=== PATIENT | female | born 1960 | race Caucasian/White ===

== ENCOUNTER → 2024-04-30 12:51 | Outpatient (BNVA) | payer OTHER, SELFPAY | PROVIDERS: PCP Family Medicine; Visit Provider Orthopaedic Surgery | DX: M54.50 Low back pain, unspecified (principal); M25.559 Pain in unspecified hip | CPT/HCPCS: 72110; 73523 ==

== ENCOUNTER 2024-05-23 14:37 | Outpatient (CLI) | payer MEDICARE, SELFPAY ==
--- NOTE | 2024-05-23 15:15 | MR_ITS ---
WS: [id number] MRI LUMBAR SPINE NONCONTRAST TECHNIQUE: Sagittal T1, T2 and STIR imaging. Axial T1 and T2 imaging. CLINICAL INFORMATION: back pain COMPARISON: None. FINDINGS: Mild lumbar curve. No acute compression. Slight anterolisthesis L4 on L5. Endplate degenerative changes L4-5. Tiny central protrusion T12-L1. L1-L2: Mild annular bulging. Mild facet arthropathy. Small RIGHT foraminal protrusion with mild RIGHT foraminal narrowing. L2-L3: LEFT paracentral protrusion. Significant impingement of traversing LEFT L3 nerve root in the subarticular recess. Mild central canal stenosis. Small bilateral foraminal protrusions. Moderate facet arthropathy. L3-L4: Mild central canal stenosis with a LEFT subarticular protrusion. Impingement of traversing LEFT L4 nerve root. LEFT foraminal protrusion impinges the exiting LEFT L3 nerve root. L4-L5: Severe central canal stenosis. Impingement of traversing L5 nerve roots. Advanced facet arthropathy with ligamentum flavum hypertrophy. Severe impingement on the traversing L5 nerve roots. RIGHT foraminal protrusion impinges the exiting L4 nerve root with moderate to severe RIGHT foraminal narro wing. L5-S1: Mild disc bulge with endplate ridging. Moderate to advanced facet arthropathy. Spinal canal and foramen are patent. Visualized pelvic bony structures: Normal. Paravertebral soft tissues: Normal. Adrenal glands are normal. No hydronephrosis in either kidney. MR/MR lumbar spine wo con* [id number] IMPRESSION: 1. Mild lumbar curve. No acute compression. 2. Grade 1 anterolisthesis L4 on L5. Severe central canal stenosis at this lev el with impingement on the traversing L5 nerve roots bilaterally. Advanced face t arthropathy and ligamentum flavum hypertrophy. 3. Moderate to severe RIGHT foraminal narrowing L4-5 impinges the exiting L4 n erve root with a RIGHT foraminal protrusion. 4. LEFT foraminal protrusion L3-4 impinges the exiting LEFT L3 nerve root 5. Mild central canal stenosis L3-4 with moderate impingement on the traversin g LEFT L4 nerve root in the subarticular recess. 6. LEFT paracentral protrusion L2-3 with mild central canal stenosis. Impingem ent on the traversing LEFT L3 nerve root in the subarticular recess. Small bila teral foraminal protrusions at this level. 7. Advanced facet arthropathy L4-L5 and L5-S1.
== END 2024-05-23 14:38 | disposition home or self-care (01) ==
LOC: RAD 14:45
PROVIDERS: PCP Family Medicine; Visit Provider Orthopaedic Surgery
DX: M48.061 Spinal stenosis, lumbar region without neurogenic claudication (principal); M43.8X6 Other specified deforming dorsopathies, lumbar region; M43.16 Spondylolisthesis, lumbar region; R93.7 Abnormal findings on diagnostic imaging of other parts of musculoskeletal system; M47.896 Other spondylosis, lumbar region; M24.28 Disorder of ligament, vertebrae; M51.26 Other intervertebral disc displacement, lumbar region; M47.897 Other spondylosis, lumbosacral region; M51.369 Other intervertebral disc degeneration, lumbar region without mention of lumbar back pain or lower extremity pain; M51.379 Other intervertebral disc degeneration, lumbosacral region without mention of lumbar back pain or lower extremity pain
CPT/HCPCS: 72148

== ENCOUNTER → 2024-05-28 14:27 | Outpatient (BNVA) | payer MEDICARE, SELFPAY | PROVIDERS: PCP Family Medicine; Visit Provider Orthopaedic Surgery | DX: M43.16 Spondylolisthesis, lumbar region (principal) | CPT/HCPCS: 36415; 80053; 81001; 85025; 99214 ==

== ENCOUNTER 2024-06-12 16:07 | Observation (INO) | payer MEDICARE, SELFPAY ==
[2024-06-12] VITALS (15 sets, daily range): BP systolic 127–188; BP diastolic 64–109; PULSE 61–102; RESP 16–18; TEMP 35.9–36.7; O2SAT 90–98; BMI 35.7
[2024-06-12 11:03] LABS: Bilirubin Urine Negative (Negative); Blood Urine 1+ (Negative); Glucose Urine UA 3+ (Normal); Ketones Urine Negative (Negative); Leukocyte Esterase Urine Trace (Negative); Nitrate Urine Negative (Negative); Protein Urine 1+ (Negative); Urine Appearance Cloudy (CLEAR); Urine Color Yellow (Yellow); pH Urine 5.5 (5-7)
[2024-06-12 11:08] LABS: Add Urine Microscopic? YES; Bacteria Urine 1+ /hpf; Hyaline Casts Urine 2.05 /lpf; Squamous Epithelial Cell Urine 21-50 /hpf (0-5); WBC Urine >100 /hpf (0-5)
--- NOTE | 2024-06-12 11:09 | W.PM.OPSUD ---
Surgery/Procedure H&P Update DATE OF PROCEDURE: June 12, 2024 DATE H&P PERFORMED: 05/28/24 H&P UPDATE INFORMATION: I have reviewed H&P completed within last 30 days, I have examined patient prior to procedure and No changes to prior documentation PREOP DIAGNOSIS: L4-5 spondylolisthesis PLANNED PROCEDURE: Operation Date: 06/12/24 11:50 Proposed Procedures p Posterior Lumbar Interbody Fusion PLIF(Not Applicable) - Pete Dang DO
[2024-06-12 11:21] LABS: Specific Gravity, Urine 1.042 (1.005-1.030)
[2024-06-12 11:22] LABS: UA Slide Review UA Slide Review Perf
[2024-06-12 11:23] LABS: Add Urine Culture? Yes
[2024-06-12 12:06] LABS: Bilirubin Urine Negative (Negative); Blood Urine 1+ (Negative); Glucose Urine UA 3+ (Normal); Ketones Urine Negative (Negative); Leukocyte Esterase Urine Negative (Negative); Nitrate Urine Negative (Negative); Protein Urine 2+ (Negative); Urine Appearance Clear (CLEAR); Urine Color Yellow (Yellow); pH Urine 5.5 (5-7)
[2024-06-12 12:11] LABS: Add Urine Microscopic? YES; Bacteria Urine None Seen /hpf; Hyaline Casts Urine 1.21 /lpf; Squamous Epithelial Cell Urine 0-5 /hpf (0-5); WBC Urine 0-5 /hpf (0-5)
[2024-06-12 12:33] LABS: Specific Gravity, Urine 1.043 (1.005-1.030)
[2024-06-12 12:34] LABS: UA Slide Review UA Slide Review Perf
[2024-06-12 12:37] LABS: Add Urine Culture? No
--- NOTE | 2024-06-12 12:44 | ANES.PREANE2 ---
Pre-Anesthetic Assessment Height/Weight: Height 5 ft 5 in Weight 215 lb Temp Pulse Resp BP Pulse Ox O2 Del Method 98 F 64 16 148/66 92 Room Air 06/12/24 10:40 06/12/24 10:40 06/12/24 10:40 06/12/24 10:40 06/12/24 10:40 06/12/24 10:43 Preop Diagnosis: L4-5 spondylolisthesis Operation Date: 06/12/24 11:50 Proposed Procedures p Posterior Lumbar Interbody Fusion PLIF(Not Applicable) - Pete Dang, DO Was Beta Tanesha taken within 24 hours: Yes Was Clonidine taken within 24 hours: N/A Last intake: Intake Last Liquid Date 06/11/24 Last Liquid Time 20:30 Last Solid Date 06/11/24 Last Solid Time 16:00 Social Tobacco and No alcohol Exam alert, oriented x 3, clear to auscultation bilaterally and regular rate & rhythm Mild murmur heard over the left axillary border. Patient states she has known mitral regurgitation. Follows with cardiology Airway Submandibular: within normal limits Cervical ROM: within normal limits Mallampati: Class III Dentition: full Anesthetic Plan ASA status: 3 Anesthesia: General Other: History of PONV, patient states scopolamine patch really works well for her NPO since yesterday evening History of hypertension on diltiazem and metoprolol. Preop BP 148/66 GERD on omeprazole KRISTIE, wears CPAP nightly Current smoker Initial concern for UTI, straight cath performed which resulted in fairly clean urine Type and screen performed Plan for GETA Medications/Allergies Home Medications ?Medication ?Instructions ?Recorded ?Confirmed ?Last Taken ?Type albuterol 90 mcg-budesonide 80 2 inh inhalation BID PRN Allergic 04/30/24 06/12/24 1 Week Ago History mcg/actuation HFA aerosol inhaler Symptoms ~06/05/24 bisacodyl 5 mg tablet,delayed 5 mg PO DAILY 04/30/24 06/12/24 06/10/24 History release furosemide 40 mg tablet (Lasix) 40 mg PO DAILY 04/30/24 06/12/24 06/11/24 History lamotrigine 200 mg tablet 200 mg PO BID 04/30/24 06/12/24 06/12/24 06:00 History (Lamictal) metoprolol tartrate 100 mg tablet 100 mg PO BID 04/30/24 06/12/24 06/12/24 06:00 History omeprazole 20 mg capsule,delayed 20 mg PO BID 04/30/24 06/12/24 06/12/24 06:00 History release potassium citrate 50 mg PO DAILY 04/30/24 06/12/24 1 Month Ago History ~05/15/24 diazepam 5 mg tablet (Valium) 5 mg PO BID PRN anxiety #2 tabs 05/20/24 06/11/24 06/11/24 Rx diltiazem HCl 120 mg tablet 120 mg PO BID 06/11/24 06/12/24 06/12/24 06:00 History duloxetine 30 mg capsule,delayed 30 mg PO DAILY 06/11/24 06/12/24 06/11/24 History release fluconazole 50 mg tablet 75 mg PO DIRECTED 06/11/24 06/12/24 3 Months Ago History ~03/14/24 Allergies Allergy/AdvReac Type Severity Reaction Status Date / Time morphine Allergy Intermediate ALGY-Hives Verified 06/12/24 10:42 semaglutide (From Ozempic) Allergy Intermediate hives Verified 06/12/24 10:42 codeine Allergy ALGY-Anaphy Verified 06/12/24 10:42 laxis topiramate (From Topamax) Allergy Unconscious Verified 06/12/24 10:42 PFSH Anesthesia Social History Smoking and tobacco/nicotine status: never used tobacco/nicotine Data Anesthesia Urine 06/12/24 06/12/24 Range/Units 10:30 11:38 Urine Color Yellow Yellow (Yellow) Urine Appearance Cloudy A Clear (CLEAR) Urine pH 5.5 5.5 (5-7) Ur Specific [place] 1.042 H 1.043 H (1.005-1.030) Urine Protein 1+ A 2+ A (Negative) Urine Glucose (UA) 3+ H 3+ H (Normal) Urine Ketones Negative Negative (Negative) Urine Nitrate Negative Negative (Negative) Urine Bilirubin Negative Negative (Negative) Ur Leukocyte Esterase Trace A Negative (Negative) Urine RBC 3-5 6-10 (0-2) /hpf Urine WBC >100 H 0-5 (0-5) /hpf Cardiac Studies: No Data to Display
[2024-06-12] MEDS: sodium chloride 0.9% 1,000 ML 30 ML IV (12:45)
[2024-06-12] MEDS: ceFAZolin 2,000 mg SDV 2000 MG IVP ×2 (13:11→20:29)
[2024-06-12] MEDS: lidocaine-epi 1% 20 mL INJ 10 ML INJECTION (13:58)
[2024-06-12] MEDS: heparin, porcine 1,000 unit/mL INJ 10 mL 10000 UNIT IRRIGATION (13:58)
[2024-06-12] MEDS: VANCOMYCIN ADD-Vantage 1,000 MG VIAL 1000 MG XX (13:59)
--- NOTE | 2024-06-12 16:10 | XR_ITS ---
WS: [id number] Exam: XR lumbar spine 2-3V* [id number] Date/Time of Exam: 06/12/2024 4:10 PM Reason For Exam: or pic, fusion Intraoperative AP and lateral images of the lumbar spine are submitted. There is posterior fusion of the spine with disc spacer at L4-5. No other postoperative changes are identified on this limited study.
--- NOTE | 2024-06-12 16:39 | P.OP_ITS ---
Operative Report Date of procedure: June 12, 2024 Pre-op diagnosis: Lumbar stenosis with neurogenic claudication L4-5 spondylolisthesis Post-op diagnosis: same Procedure done: 1. L4/5 Interbody fusion with posterolateral fusion 2. Instrumentation L4-L5 3. Interbody Cage at L4/5 4. L4-5 laminectomy with facetectomies 5. use of autograft from same incision 6. allograft 7. Bone marrow aspirate from right iliac crest 8. Use of computer navigation stereotactic for spine Surgeon: Pete Dang DO Estimated blood loss (mL): 150 Procedure: 1. L4/5 Interbody fusion with posterolateral fusion 2. Instrumentation L4-L5 3. Interbody Cage at L4/5 4. L4-5 laminectomy with facetectomies 5. use of autograft from same incision 6. allograft 7. Bone marrow aspirate from right iliac crest 8. Use of computer navigation stereotactic for spine Patient is brought to the operative suite. After undergoing anesthesia, the patient had neuro monitoring attached. Patient was then placed in the prone position on the Niko table. All areas of impingement were well-padded. Patient was then prepped and draped in the normal sterile fashion. Skin incision was then made over the L4 to L5 levels. Subperiosteal dissection was made out to the transverse processes of L4 and L5. Next attention was brought to the [employer] bone marrow aspirate kit was used to aspirate bone marrow aspirate. This was done by using the sharp probe to open up the bone. Aspiration was performed and then the blunt probe was then used to dissect down to through the bone tunnel. An aspirating well drawn back a millimeter approximately 20 cc of bone marrow aspirate was used. Admixed with the allograft and autograft bone that will be used. Next attention was brought to placing 2 pins into the right iliac crest will later be removed. The fiducial was attached to this. And the C-arm was brought in and spun around the patient. The information from the C-arm was then loaded the computer and later used for placing the pedicle screws under computer navigation. The technique for placing the pedicle screws was to use a drill followed by the gearshift probe linked to computer navigation. Followed by the ball probe to feel the superior inferior medial lateral john of the pedicles. Then placement of the screws with computer navigation. Was done at each pedicle. Screws were placed at L4 bilaterally and L5. Next attention was brought to performing the laminectomy of L4. This was done using the high-speed bur Kerrisons and curettes. Once the lamina was removed and then attention was brought to performing a partial facetectomy on the contralateral side. This was done again using the high-speed bur curettes and Kerrisons. The ligamentum flavum was taken down bilaterally from L4 to L5. Attention was then brought to the facet on the ipsilateral side. The facet was taken down. The L5 nerve was decompressed as it passed around the L5 pedicle. The laminectomy was done for purposes of decompressing the nerve as well as placement of the cage. The L4 nerve was identified as it traversed through the L4/5 foramen. The facets were taken down bilaterally in order to facilitate opening up with the disc space. the thecal sac was identified and retracted. The L4/5 disc space was identified. Using a knife the disc base was opened. And then sequential keegan were placed. The first shaver was a 6 and the last shaver was a 10. Using a pituitary and down going curette the endplates were scraped and disc material was removed from the space. Once adequate decompression of the disc base was felt to be had. Osteoamp sponge was packed into the anterior aspect of the disc base. Then a size 11 cage from [employer] was placed after packing osteoamp into the cage. While placing the cage the thecal sac and L5 nerve was protected. C arm was used to ensure that the cages placed in the appropriate position. Attention was then brought to attaching the rods to the screws placed in the L4 bilaterally and L5 bilaterally. Caps were torqued into position. Locking the construct in place. Wound was copiously irrigated and then attention was brought to decorticating the facets and transverse processes laterally. Bone that was taken down from the lamina was used along with osteoamp fibers and sponges were packed into the lateral gutters along the facet joints. This was done bilaterally. Wound was then closed in a layered fashion starting with the thoracolumbar fascia. 0-vicryl was used the sub cutaneous tissue was closed with 2-0 vicryl and skin with 4-0 monocryl. Steri-Strips were then applied. Sterile Silverlon dressing was placed. patient was then placed in the supine position. The endotracheal tube was removed and patient was transferred to the PACU in stable condition.
[2024-06-12] MEDS: fentaNYL 50 mcg/mL INJ 2mL IVP (16:40)
[2024-06-12] MEDS: HYDROmorphone 1 mg/mL INJ 1ml (16:55)
--- NOTE | 2024-06-12 17:15 | ANE.PACU2 ---
Inpatient post-anesthesia follow up: Airway intact: Yes Vital signs: Temperature 97.9 F Pulse Rate 81 Respiratory Rate 18 Blood Pressure 146/76 Pulse Oximetry 91 Oxygen Delivery Me thod Room Air Oxygen Flow Rate 7 Fraction of Inspir ed Oxygen Hydration adequate: Yes Nausea and vomiting: No Pain level: 2 Mental status: Baseline
[2024-06-12] MEDS: dilTIAZem ER (12HR) 60 mg Capsule 120 MG PO (17:50)
[2024-06-12] MEDS: docusate sodium 100 mg Capsule PO (17:50)
[2024-06-12] MEDS: pantoprazole DR 40 mg Tablet PO (17:50)
[2024-06-12] MEDS: lamoTRIgine 100 mg Tablet 200 MG PO (17:50)
[2024-06-12] MEDS: metoprolol tartrate 50 mg Tablet 100 MG PO (17:50)
[2024-06-12] MEDS: lactated ringers 1,000 ML 90 ML IV (17:50)
[2024-06-12] MEDS: HYDROmorphone 0.5 MG/0.5 ML INJ IVP (17:54)
[2024-06-12] MEDS: HYDROcodone-acetaminophen 5-325 mg Tablet PO (20:32)
[2024-06-12] MEDS: ketorolac 30 mg/mL INJ IVP (20:32)
[2024-06-13] VITALS: BP 126/73; PULSE 82; RESP 17; TEMP 36.4; O2SAT 93
[2024-06-13 04:00] VITALS: BP 143/71; PULSE 87; RESP 18; TEMP 36.3; O2SAT 94
[2024-06-13] MEDS: lactated ringers 1,000 ML 90 ML IV (04:19)
[2024-06-13] MEDS: HYDROcodone-acetaminophen 5-325 mg Tablet PO ×2 (04:43→10:11)
[2024-06-13] MEDS: ceFAZolin 2,000 mg SDV 2000 MG IVP (04:43)
--- NOTE | 2024-06-13 06:32 | P.DS_ITS ---
Discharge Providers Date of Admission: 06/12/24 16:07 Date of Discharge: June 13, 2024 Attending Provider at Admission: Pete Dang DO Attending Provider at Discharge: Pete Dang DO Primary Care Provider: Asia Carl MD Reason for Visit Reason for Visit: [id number] Physical Exam Narrative: Patient doing well 5-5 strength no complaints of pain. Urinary Catheter Management: M[employer]: Cath Placed During This Visit: yes Reason for Continuing Indwelling Catheter: Perioperative Use in Selected Surgeries Urinary Catheter Date of Insertion: 06/12/24 Urinary Catheter Time of Insertion: 11:38 Discharge Data Studies Completed and Pending Pending at discharge Category Date Time Status C-arm Fluoroscopy [id number] Routine Exams 06/12/24 10:21 Taken XR lumbar spine 2-3V* [id number] Routine Exams 06/12/24 16:10 Taken Urine Culture Routine Lab 06/12/24 10:30 Received Laboratory Results Urine Color Yellow (Yellow) 06/12/24 11:38 Urine Appearance Clear (CLEAR) 06/12/24 11:38 Urine pH 5.5 (5-7) 06/12/24 11:38 Ur Specific [place] 1.043 (1.005-1.030) H 06/12/24 11:38 Urine Protein 2+ (Negative) A 06/12/24 11:38 Urine Glucose (UA) 3+ (Normal) H 06/12/24 11:38 Urine Ketones Negative (Negative) 06/12/24 11:38 Urine Blood 1+ (Negative) A 06/12/24 11:38 Urine Nitrate Negative (Negative) 06/12/24 11:38 Urine Bilirubin Negative (Negative) 06/12/24 11:38 Urine Urobilinogen 1.0 mg/dL (Negative) 06/12/24 11:38 Ur Leukocyte Esterase Negative (Negative) 06/12/24 11:38 Urine RBC 6-10 /hpf (0-2) 06/12/24 11:38 Urine WBC 0-5 /hpf (0-5) 06/12/24 11:38 Ur Squamous Epith Cells 0-5 /hpf (0-5) 06/12/24 11:38 Amorphous Sediment Not Reportable 06/12/24 11:38 Urine Bacteria None seen /hpf (NONE) 06/12/24 11:38 Hyaline Casts 1.21 /lpf 06/12/24 11:38 Blood Type A Positive 06/12/24 12:50 Rho(D) Type Rh positive 06/12/24 12:50 Antibody Screen Negative 06/12/24 12:50 Vitals Last Vital Signs Temp 97.4 F L 06/13/24 04:00 Pulse 87 06/13/24 04:00 Resp 18 06/13/24 04:00 BP 143/71 06/13/24 04:00 Pulse Ox 94 06/13/24 04:00 O2 Del Method CPAP 06/13/24 04:00 O2 Flow Rate 7 06/12/24 18:39 Discharge Plan Discharge Patient Disposition: Home Condition: Stable Prescriptions: New hydrocodone-acetaminophen 5-325 mg tablet 1 - 2 tab PO .Q4-6H Qty: 40 0RF Continued metoprolol tartrate 100 mg tablet 100 mg PO BID lamotrigine [Lamictal] 200 mg tablet 200 mg PO BID furosemide [Lasix] 40 mg tablet 40 mg PO DAILY potassium citrate 50 mg PO DAILY omeprazole 20 mg capsule,delayed release(DR/EC) 20 mg PO BID albuterol-budesonide 90-80 mcg/actuation HFA aerosol inhaler 2 inh inhalation BID PRN (Reason: Allergic Symptoms) bisacodyl 5 mg tablet,delayed release (DR/EC) 5 mg PO DAILY diltiazem HCl 120 mg tablet 120 mg PO BID fluconazole 50 mg Tablet 75 mg PO DIRECTED duloxetine 30 mg capsule,delayed release(DR/EC) 30 mg PO DAILY Discontinued diazepam [Valium] 5 mg tablet 5 mg PO BID PRN (Reason: anxiety) Qty: 2 0RF Rx Instructions: Take 1st tab 1 1/2 hour prior to procedure. take 2nd tab just prior to procedure. Discharge Orders: Discharge Order (Routine); Ordered 06/13/24 Ordered By: Pete Dang Discharge Diet: Advance as tolerated Discharge Activity: Limit activity as instructed Patient Instructions: Acute Wound Care (DC), Opioid Safety, Post Anesthesia Care Activity Restrictions/Additional Instructions: Okay to restart Valium when you get home Thank you for [facility] for your care! The following is a list of instructions, from your provider, to follow upon your discharge to ensure you have the optimal recovery from your recent injury orsurgery. Follow-up care is a tang part of your treatment and safety. Be sure to make and go to all appointments, and call your doctor if you are having problems. If you do not already have a follow-up appointment made, call Dr. Dang office in the next 1-3 days to make follow up appointment for 1 weeks at [phone]. It is also a good idea to know your test results and keep a list of the medicines you take. Medications will be prescribed for you at your provider's discretion. These medications are to be used as instructed; if they are taken more often that prescribed they will not be refilled early and in most cases will not be refilled at all. > When a refill is needed,you should contact sid anderson 2-3 business days before your prescription runs out. Medications will NOT be refilled by teacher of family and consumer science providers after hours! > Many pain medications contain Tylenol (Acetaminophen). Do not consume more than 4,000 mg of Tylenol per day in total with any combination ofmedications. > Pain medications can cause constipation. Please use an over the counter stool softener as directed, while taking pain medications. Consulty our local pharmacist with questions or recommendations on stool softeners. If constipation persists, contact our office or your primary care provider. > While under our care,you are not to receive pain medications or other controlled substances from any other provider unless our office is notified and approves. Any attempts to do so will result in refusal to prescribe any further pain medications and possible dismissal from our practice. Keep dressing on until we see you in the clinic we will change it in the clinic. ? Walking is essential for the healing process after surgery. We would like you to slowly advance your walking. This should be done on relatively flat clear ground (inside or out) or can be done on a treadmill. Remember this goal does not have to happen all at once, slowly increase your distance and duration. This can be broken into more more than one walk per day as tolerated. Patients who walk as directed after surgery rarely require Physical Therapy. In the unlikely event this issue arises your provider will direct hospital staff to make the appropriate arrangements. ? No lifting over 5 pounds {a gallon of milk) or bending/twisting until further notice. Each of these activities places an unnecessary amount of stress onto the body and can impede the delicate healing process. > Instead of bending at the waist, keep your back straight and bend at the knees. > Instead of twisting your torso, keep your back straight and turn your entire body with your feet. ? You may sleep in any position which makes you comfortable. Many patients find comfort sleeping in a reclining chair. It is not abnormal to have difficulty sleeping for the first several weeks following your surgery. We recommend trying Benadry! or Tylenol PM as directed to help with your sleeping difficulties. Both medications are over the counter and available withoutprescription. ? NO SMOKING!!! Smoking dramatically increases the probability of developing postoperative wound infections. ? Common complaints after lumbar and/or thoracic spine surgery include, but are not limited to: numbness and/or tingling in the legs, pain around the incision and surrounding tissues, muscle spasms, or stiffness of the middle to low back. Contact our office if these symptoms persist or if an acute change occurs. ? No driving for the first 3-5days, and not while taking narcotics [] until seen at your follow-up appointment and cleared. There are no restrictions for riding on short trips, however if you take a longer trip, arrangements should be made to make regular stops to get out of the vehicle and stretch . ? Swelling is an unfortunate event that will take place with any surgery and is the primary source of your postoperative discomfort. While walking and regular approved activities helps control inflammation, there are additional steps you can take to minimizeswelling. > Place ice over the surgical site and surrounding tissue for twenty minutes, followed by applying a low/medium heat (heating pad) for an additional twenty minutes every 1-2 hours as needed for painrelief. > You may use of over the counter anti-inflammatory medications (Ibuprofen, Motrin, Aleve, Advil, etc) as directed on the package label. These types of medicines wm significantly reduce the amount of discomfort you experience after surgery from swelling. It should be noted that if you have and allergy to any of these medications, or a history of ulcers or kidney disease you should consult you primary care provider prior to starting these medications. Discharge Attestations Time Spent in Discharge Care*: less than 30 min Quality Metrics Clinical Quality Measures [ No reported AMI, CVA or VTE this stay] Coding Level of Care Code Acute Code for Chg Heriberto
[2024-06-13] MEDS: pantoprazole DR 40 mg Tablet PO (07:30)
[2024-06-13] MEDS: docusate sodium 100 mg Capsule PO (07:30)
[2024-06-13] MEDS: bisacodyl 5 mg Tablet PO (07:30)
[2024-06-13] MEDS: metoprolol tartrate 50 mg Tablet 100 MG PO (07:30)
[2024-06-13] MEDS: dilTIAZem ER (12HR) 60 mg Capsule 120 MG PO (07:30)
[2024-06-13] MEDS: FUROsemide 40 mg Tablet PO (07:31)
[2024-06-13] MEDS: lamoTRIgine 100 mg Tablet 200 MG PO (07:31)
[2024-06-13] MEDS: duloxetine 30 mg Capsule PO (07:31)
[2024-06-13 07:58] VITALS: BP 146/76; PULSE 89; TEMP 36.6; O2SAT 91
[2024-06-13 08:25] VITALS: PULSE 81; RESP 18; O2SAT 91
[2024-06-13] MEDS: budesonide 0.5 mg/2 mL Neb INHALATION (08:25)
[2024-06-13] MEDS: albuterol 2.5 mg/3 mL Neb INHALATION (08:25)
--- NOTE | 2024-06-13 09:28 | PC.NURSE ---
This nurse as well as [employer] RN student, Yeimi, removed patients hemovac drain located in the right lower back. Once removed, site was covered with sterile gauze and tape. Pt tolerated well.
--- NOTE | 2024-06-13 09:29 | PC.NURSE ---
Discharge pending transportation home. Pt family lives in [place], but will be on there way to get pt shortly.
[2024-06-13 10:41] VITALS: BP 142/76; PULSE 88; O2SAT 93
--- NOTE | 2024-06-13 18:03 | PC.PT ---
She had already been discharged to home prior to therapy going to see her today.
== END 2024-06-13 10:45 | disposition home or self-care (01) ==
LOC: MEDSURG 16:07
PROVIDERS: Admitting Provider Orthopaedic Surgery; PCP Family Medicine; Visit Provider Orthopaedic Surgery
PROC: (CPT 22612; principal; 2024-06-12 11:50)
DX: M48.062 Spinal stenosis, lumbar region with neurogenic claudication (principal); M43.16 Spondylolisthesis, lumbar region; I10 Essential (primary) hypertension; G47.33 Obstructive sleep apnea (adult) (pediatric); K21.9 Gastro-esophageal reflux disease without esophagitis; F17.200 Nicotine dependence, unspecified, uncomplicated; Z99.89 Dependence on other enabling machines and devices
CPT/HCPCS: 22633; 22842; 22853; 63052; 20936; 20930; 20939; 61783; 36415; 51702; 72100; 76000; 81001; 86850; 86900; 87086; 94640; C1713; G0378; J0690; J1171; J1644; J1885; J2250; J2704; J3010; J3370; J7030; J7120; J7613; J7626; J9999

== ENCOUNTER → 2024-06-25 07:57 | Outpatient (BNVA) | payer MEDICARE, SELFPAY | PROVIDERS: PCP Family Medicine; Visit Provider Orthopaedic Surgery | DX: Z98.1 Arthrodesis status (principal) | CPT/HCPCS: 99024 ==

== ENCOUNTER → 2024-07-23 13:01 | Outpatient (BNVA) | payer MEDICARE, SELFPAY | PROVIDERS: PCP Family Medicine; Visit Provider Orthopaedic Surgery | DX: Z98.1 Arthrodesis status (principal) | CPT/HCPCS: 72100; 99024 ==

== ENCOUNTER → 2024-09-03 12:43 | Outpatient (BNVA) | payer MEDICARE, SELFPAY | PROVIDERS: PCP Family Medicine; Visit Provider Orthopaedic Surgery | DX: Z98.1 Arthrodesis status (principal) | CPT/HCPCS: 72100; 99213 ==

== ENCOUNTER → 2025-03-18 14:39 | Outpatient (BNVA) | payer MEDICARE, SELFPAY | PROVIDERS: PCP Family Medicine; Visit Provider Orthopaedic Surgery | DX: Z47.89 Encounter for other orthopedic aftercare (principal); Z98.1 Arthrodesis status | CPT/HCPCS: 72100; 99213 ==